=== PATIENT | male | born 1955 | race African-American/Black ===

== ENCOUNTER 2021-07-27 09:11 | Emergency (ER) | payer BC, OTHER ==
[~2021-07-27] VITALS: Ht 170.2 cm; Wt 95.3 kg
--- NOTE | 2021-07-27 10:01 | ED General ---
General Chief Complaint: COVID19 Suspect/Confirmed Stated Complaint: LETHARGY; COVID+ Nursing Triage Note: Patient reports he began having symptoms of nausea/vomiting/diarrhea on Wednesday, states he tested positive for COVID-19 on Wednesday at the walk-in clinic. He reports his N/V/D have resolved, states he is feeling weak and tired, but denies any shortness of breath or other symptoms. He states he is taking in fluids well, but not eating well. He states he took tylenol at home approximately 30 minutes prior to his arrival to the ED. Source of Information: Patient Exam Limitations: No Limitations History of Present Illness Date Seen by Provider: Jul 27, 2021 Time Seen by Provider: 09:30 Initial Comments Patient is a 66-year-old -[place] male diagnosed with Covid 1 week ago who presents with fatigue. He states he is tired all the time and has no energy. Denies fever, cough, sore throat, shortness of breath, chest pain, nausea, vomiting, diarrhea. Denies urinary frequency urgency dysuria. No other acute symptoms or complaints. History of congestive heart failure and CAD. He is compliant with his medications. No other acute symptoms or complaints. Patient is not currently scheduled for antibody infusion. Timing/Duration: 1 Week Severity: Moderate Modifying Factors: improves with Other Associated Systoms: Other Allergies and Home Medications Allergies Coded Allergies: No Known Drug Allergies (Unverified , 07/27/21) Patient Home Medication List Home Medication List Reviewed: Yes Review of Systems Review of Systems Constitutional: see HPI EENTM: see HPI Respiratory: see HPI Cardiovascular: see HPI Gastrointestinal: see HPI Genitourinary: see HPI Musculoskeletal: see HPI Skin: see HPI Psychiatric/Neurological: See HPI Hematologic/Lymphatic: See HPI Immunological/Allergic: see HPI Past Nzaircg-Huwcfw-Ijgfyt Hx Patient Social History Tobacco Use?: No Substance use?: No Alcohol Use?: No Pt feels they are or have been: No Past Medical History Surgery/Hospitalization HX: HTN, fluid retention Physical Exam Vital Signs Vital Signs - First Documented 07/27/21 09:20 Temp 36.8 Pulse 102 Resp 20 B/P (MAP) 154/82 (106) Pulse Ox 94 O2 Delivery Room Air Capillary Refill : Less Than 3 Seconds Height, Weight, BMI Height: '" Weight: lbs. oz. kg; 32.00 BMI Method: General Appearance: No Apparent Distress, WD/WN Eyes: Bilateral Eye Normal Inspection, Bilateral Eye PERRL, Bilateral Eye EOMI HEENT: PERRL/EOMI, Pharynx Normal, Moist Mucous Membranes Neck: Full Range of Motion, Non Tender, Supple Respiratory: Chest Non Tender, Lungs Clear, No Respiratory Distress Cardiovascular: Regular Rate, Rhythm Gastrointestinal: Non Tender, Soft Back: Normal Inspection, No CVA Tenderness Neurologic/Psychiatric: Alert, Oriented x3, Normal Mood/Affect, weed cutter II-XII Norm as Tested Skin: Warm/Dry Focused Exam Sepsis Stage: Ruled Out Progress/Results/Core Measures Suspected Sepsis SIRS Temperature: Pulse: 102 Respiratory Rate: 20 Blood Pressure 154 /82 Mean: 106 Results/Orders Vital Signs/I&O 07/27/21 07/27/21 09:20 09:44 Temp 36.8 Pulse 102 Resp 20 B/P (MAP) 154/82 (106) Pulse Ox 94 O2 Delivery Room Air Room Air Capillary Refill : Less Than 3 Seconds Blood Pressure Mean: 106 Departure Communication (Admissions) Patient's physical exam reassuring. He currently denies any cardiac or respiratory type symptoms. I feel as though antibiotic could be low yield given the lack of respiratory complaints and feel as though the benefit to risk ratio of steroids is also currently not in the patient's favor. He may be a good candidate for antibody infusions. He is instructed to follow-up with his PCP tomorrow to coordinate outpatient treatment. Return precautions reviewed. Patient verbalizes understanding agreement with discharge instructions prior to departure. Impression Primary Impression: COVID Disposition: 01 HOME, SELF-CARE Condition: Stable Departure-Patient Inst. Decision time for Depature: 10:05 Referrals: JAN VALLEJO MD (PCP/Family) Primary Care Physician Patient Instructions: COVID-19 ED Add. Discharge Instructions: Please go home and rest, maintain y adequate t caloric and daily fluid intake, continue current medications and follow-up with your PCP tomorrow to coordinate outpatient antibiotic infusion. Return to the ED if new or worsening symptoms. All discharge instructions reviewed with patient and/or family. Voiced understanding. SKYLRE CAGLE DO Jul 27, 2021 10:01
[2021-07-27 10:13] VITALS: BP 133/73
== END 2021-07-27 10:22 | disposition home or self-care (01) ==
LOC: ER FS 09:15
DX: U07.1 COVID-19 (principal); I11.0 Hypertensive heart disease with heart failure; I50.9 Heart failure, unspecified
CPT/HCPCS: 99281